=== PATIENT | male | born 1980 | race Caucasian/White ===

== ENCOUNTER → 2020-09-10 09:01 | Outpatient (CLI) | payer OTHER, SELFPAY ==
--- NOTE | ~2020-09-10 | XR_ITS ---
XR lumbar spine 2-3V 09/10/2020 09:33 Indication: Low back pain Procedure: Low back pain Comparison: 03/08/2011 Findings: There is disc narrowing at L4-5 and L5-S1. There are facet degenerative changes at these le vels. Vertebral body heights are maintained. No fracture or traumatic malalignment. No evidence for s pondylolisthesis. Impression: 1: Mild lumbar spondylosis. Reviewed, dictated and finalized at location B. IC [employer] Impression: 1: Mild lumbar spondylosis.
--- NOTE | ~2020-09-10 | XR_ITS ---
XR thoracic spine 2V 09/10/2020 09:33 Indication: Low back pain Procedure: 3 views lumbar spine Comparison: No prior studies for comparison. Findings: Mild levocurvature of the lumbar spondylosis. Vertebral body heights are maintained. No fra cture or traumatic malalignment. No paraspinal soft tissue abnormality. Surrounding osseous structure s and soft tissues within normal limits. Impression: 1: Mild levoscoliosis. Reviewed, dictated and finalized at location B. SPECIALIST Impression: 1: Mild levoscoliosis.
== END ==
PROVIDERS: PCP Physician Assistant; Visit Provider Physician Assistant
DX: M54.5 Low back pain (principal); M41.86 Other forms of scoliosis, lumbar region; M47.816 Spondylosis without myelopathy or radiculopathy, lumbar region
CPT/HCPCS: 72070; 72100